=== PATIENT | male | born 2000 | race American Indian/Alaskan Native ===

== ENCOUNTER 2021-03-24 19:51 | Emergency (ER) | payer OTHER ==
[2021-03-24] MEDS ORDERED: IBUPROFEN 600 MG TAB PO ONE (20:36)
[2021-03-24] MEDS ORDERED: ACETAMINOPHEN 500 MG TAB PO ONE (20:36)
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
--- NOTE | 2021-03-24 21:09 | XRay Report ---
XR spine lumbosacral 2-3V INDICATION / CLINICAL INFORMATION: [facility] Injury - pain. COMPARISON: None available. FINDINGS: BONES/JOINT(S): No acute fracture. No significant malalignment. PARASPINAL SOFT TISSUES:No significant abnormality. ADDITIONAL FINDINGS: None. IMPRESSION: 1. No acute findings. Signer Name: Casper Gaitan MD Signed: 03/24/2021 9:04 PM Workstation Name: [id number]
[2021-03-24] MEDS ORDERED: IBUPROFEN 600 MG TAB PO NR (21:39)
[2021-03-24] MEDS ORDERED: ACETAMINOPHEN 500 MG TAB PO NR (21:39)
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
[2021-03-24 22:24] VITALS: BP 120/60
== END 2021-03-24 22:26 | disposition home or self-care (01) ==
LOC: ED 19:51
DX: M62.830 Muscle spasm of back (principal); M54.5 Low back pain; M62.838 Other muscle spasm; M54.2 Cervicalgia; V89.2XXA Person injured in unspecified motor-vehicle accident, traffic, initial encounter; Y93.89 Activity, other specified; Y92.488 Other paved roadways as the place of occurrence of the external cause; Y99.8 Other external cause status
CPT/HCPCS: 72040; 72100; 99283